=== PATIENT | female | born 1955 | race Caucasian/White ===

== ENCOUNTER 2018-01-03 01:30 | Emergency (ER) | payer OTHER ==
[~2018-01-03] VITALS: Ht 157.5 cm; Wt 90.7 kg
[~2018-01-03 01:30] MED LIST: LISI20; PANT20 PO; Percocet 5-3251 EACH PO; TIZANIDINE HCL4 MG; TRAM50
[2018-01-03] MEDS ORDERED: BENADRYL25 MG PO (03:30)
[2018-01-03] MEDS ORDERED: Prednisone50 MG PO (03:30)
== END 2018-01-03 03:47 | disposition home or self-care (01) ==
LOC: ER 01:30
DX: L50.0 Allergic urticaria (principal); Z88.0 Allergy status to penicillin; Z79.899 Other long term (current) drug therapy; Z79.891 Long term (current) use of opiate analgesic; Z87.891 Personal history of nicotine dependence
CPT/HCPCS: 99282; J1100; Q0163

== ENCOUNTER 2020-11-02 15:55 | Emergency (ER) | payer OTHER ==
[~2020-11-02] VITALS: Ht 157.5 cm; Wt 92.1 kg
[~2020-11-02 15:55] MED LIST changes: +BENADRYL25 MG PO; +DOCUZEN 8.6-501 EACH PO; +HYDR1TAB94 PO; -LISI20; +MOTRIN IB200 MG; +Norco 5-325 Ta1 EACH PO; +OXYC5 PO; +PANTOPRAZOLE SO40 M2 PO; +PROM25 PO; +Prednisone50 MG PO; +Prinivil10 MG PO; +TRAM50 PO
[2020-11-02 16:34] LABS: BASOPHILS ABSOLUTE AUTO 0.04 K/mm3 (0.00-0.23); BASOPHILS PERCENT AUTO 1 % (0-2); EOSINOPHILS ABSOLUTE AUTO 0.12 K/mm3 (0.00-0.68); EOSINOPHILS PERCENT AUTO 2 % (0-6); Hematocrit 39.1 % (33.0-51.0); Hemoglobin 12.1 g/dL (11.5-16.0); IMMATURE GRAN ABSOLUTE AUTO 0.01 K/mm3 (0.00-0.10); IMMATURE GRAN PERCENT AUTO 0 % (0-1); LYMPHOCYTES ABSOLUTE AUTO 2.25 K/mm3 (0.84-5.20); LYMPHOCYTES PERCENT AUTO 27 % (21-46); MONOCYTES ABSOLUTE AUTO 0.78 K/mm3 (0.16-1.47); MONOCYTES PERCENT AUTO 10 % (4-13); Mean Corpuscular HGB 25.3 pg (26.0-34.0); Mean Corpuscular HGB Conc 30.9 g/dL (31.5-36.5); Mean Corpuscular Volume 82 fL (80-100); Mean Platelet Volume 9.5 fL (9.1-12.4); NEUTROPHILS ABSOLUTE AUTO 5.01 K/mm3 (1.96-9.15); NEUTROPHILS PERCENT AUTO 61 % (41-73); Platelet Count 619 K/mm3 (150-400); RDW Coefficient Variation 12.8 % (11.7-14.2); RDW Standard Deviation 37.7 fL (35.1-46.3); Red Blood Cell Count 4.79 M/mm3 (3.80-5.20); White Blood Cell Count 8.21 K/mm3 (4.00-11.30)
[2020-11-02 16:52] LABS: Alanine Aminotransfer (ALT/SGP 36 U/L (12-78); Albumin/Globulin Ratio 0.8 (0.8-1.8); Alk Phos 76 U/L (50-136); Anion Gap 4 mmol/L (6-16); Aspartate Aminotrans (AST/SGOT 33 U/L (12-37); Bilirubin, Total 0.3 mg/dL (0.1-1.0); Blood Urea Nitrogen 18 mg/dL (8-24); Bun/Creatinine Ratio 19.7 (12.0-20.0); CO2, Blood 28 mmol/L (21-32); Calcium, Blood 9.1 mg/dL (8.5-10.1); Chloride, Blood 106 mmol/L (98-108); Creatinine, Blood 0.92 mg/dL (0.40-1.00); Glomerular Filtration Rate >60 (60-); Glucose, Blood 110 mg/dL (70-99); Potassium, Blood 4.3 mmol/L (3.5-5.5); Sodium, Blood 138 mmol/L (136-145)
[2020-11-02] MEDS ORDERED: Percocet 5-3251 EACH PO (18:45)
== END 2020-11-02 19:37 | disposition home or self-care (01) ==
LOC: ER 15:55
PROVIDERS: Physician Assistant
DX: R10.9 Unspecified abdominal pain (principal); R14.0 Abdominal distension (gaseous); C80.1 Malignant (primary) neoplasm, unspecified; Z79.899 Other long term (current) drug therapy; Z88.0 Allergy status to penicillin; Z87.891 Personal history of nicotine dependence
CPT/HCPCS: 36415; 80053; 83690; 85025; 96374; 99284-25; A9270; J1170

== ENCOUNTER 2020-11-05 09:36 | Emergency (ER) | payer OTHER ==
[~2020-11-05] VITALS: Ht 157.5 cm; Wt 92.1 kg
== END 2020-11-05 11:50 | disposition home or self-care (01) ==
LOC: ER 09:36
DX: R18.8 Other ascites (principal); R10.9 Unspecified abdominal pain; Z88.0 Allergy status to penicillin; Z87.891 Personal history of nicotine dependence
CPT/HCPCS: 49083; 99284-25

== ENCOUNTER → 2020-12-13 | Outpatient (CLI) | payer OTHER ==
[2020-12-13 14:21] LABS: BASOPHILS ABSOLUTE AUTO 0.03 K/mm3 (0.00-0.23); BASOPHILS PERCENT AUTO 1 % (0-2); EOSINOPHILS ABSOLUTE AUTO 0.05 K/mm3 (0.00-0.68); EOSINOPHILS PERCENT AUTO 1 % (0-6); Hematocrit 34.3 % (33.0-51.0); IMMATURE GRAN ABSOLUTE AUTO 0.02 K/mm3 (0.00-0.10); IMMATURE GRAN PERCENT AUTO 0 % (0-1); LYMPHOCYTES PERCENT AUTO 38 % (21-46); MONOCYTES ABSOLUTE AUTO 0.29 K/mm3 (0.16-1.47); MONOCYTES PERCENT AUTO 6 % (4-13); Mean Corpuscular HGB 26.2 pg (26.0-34.0); Mean Corpuscular HGB Conc 32.1 g/dL (31.5-36.5); Mean Corpuscular Volume 82 fL (80-100); Mean Platelet Volume 9.9 fL (9.1-12.4); NEUTROPHILS ABSOLUTE AUTO 2.76 K/mm3 (1.96-9.15); NEUTROPHILS PERCENT AUTO 55 % (41-73); Platelet Count 288 K/mm3 (150-400); RDW Coefficient Variation 15.7 % (11.7-14.2); RDW Standard Deviation 46.5 fL (35.1-46.3); White Blood Cell Count 5.05 K/mm3 (4.00-11.30)
[2020-12-13 14:28] LABS: Alanine Aminotransfer (ALT/SGP 24 U/L (12-78); Albumin, Blood 3.6 g/dL (3.4-5.0); Alk Phos 57 U/L (50-136); Anion Gap 4 mmol/L (6-16); Aspartate Aminotrans (AST/SGOT 11 U/L (12-37); Bilirubin, Total 0.3 mg/dL (0.1-1.0); Blood Urea Nitrogen 31 mg/dL (8-24); Bun/Creatinine Ratio 36.4 (12.0-20.0); CO2, Blood 26 mmol/L (21-32); Calcium, Blood 9.3 mg/dL (8.5-10.1); Chloride, Blood 106 mmol/L (98-108); Creatinine, Blood 0.85 mg/dL (0.40-1.00); Globulin, Blood 3.7 g/dL (2.2-4.0); Glomerular Filtration Rate >60 (60-); Glucose, Blood 137 mg/dL (70-99); Potassium, Blood 4.4 mmol/L (3.5-5.5); Sodium, Blood 136 mmol/L (136-145); Total Protein, Blood 7.3 g/dL (6.4-8.2)
== END | disposition home or self-care (01) ==
LOC: LAB 14:00 → LAB SHORT 14:00
PROVIDERS: Internal Medicine Hematology & Oncology
DX: C48.2 Malignant neoplasm of peritoneum, unspecified (principal)
CPT/HCPCS: 80053; 85025

== ENCOUNTER → 2021-05-22 | Outpatient (CLI) | payer OTHER ==
[2021-05-22 10:59] LABS: BASOPHILS ABSOLUTE AUTO 0.02 K/mm3 (0.00-0.23); BASOPHILS PERCENT AUTO 0 % (0-2); EOSINOPHILS ABSOLUTE AUTO 0.09 K/mm3 (0.00-0.68); EOSINOPHILS PERCENT AUTO 2 % (0-6); Hematocrit 36.2 % (33.0-51.0); Hemoglobin 11.2 g/dL (11.5-16.0); IMMATURE GRAN ABSOLUTE AUTO 0.01 K/mm3 (0.00-0.10); IMMATURE GRAN PERCENT AUTO 0 % (0-1); LYMPHOCYTES ABSOLUTE AUTO 1.86 K/mm3 (0.84-5.20); LYMPHOCYTES PERCENT AUTO 33 % (21-46); MONOCYTES ABSOLUTE AUTO 0.57 K/mm3 (0.16-1.47); MONOCYTES PERCENT AUTO 10 % (4-13); Mean Corpuscular HGB 27.1 pg (26.0-34.0); Mean Corpuscular HGB Conc 30.9 g/dL (31.5-36.5); Mean Corpuscular Volume 88 fL (80-100); Mean Platelet Volume 9.5 fL (9.1-12.4); NEUTROPHILS ABSOLUTE AUTO 3.17 K/mm3 (1.96-9.15); NEUTROPHILS PERCENT AUTO 55 % (41-73); Platelet Count 248 K/mm3 (150-400); RDW Coefficient Variation 15.1 % (11.7-14.2); RDW Standard Deviation 48.1 fL (35.1-46.3); Red Blood Cell Count 4.13 M/mm3 (3.80-5.20); White Blood Cell Count 5.72 K/mm3 (4.00-11.30)
[2021-05-22 11:20] LABS: Albumin, Blood 3.4 g/dL (3.4-5.0); Albumin/Globulin Ratio 0.9 (0.8-1.8); Bilirubin, Total 0.3 mg/dL (0.1-1.0); Bun/Creatinine Ratio 16.7 (12.0-20.0); Calcium, Blood 9.4 mg/dL (8.5-10.1); Creatinine, Blood 0.96 mg/dL (0.40-1.00); Globulin, Blood 3.7 g/dL (2.2-4.0); Total Protein, Blood 7.1 g/dL (6.4-8.2)
== END ==
LOC: LAB SHORT 10:33
PROVIDERS: Internal Medicine Hematology & Oncology
DX: C48.2 Malignant neoplasm of peritoneum, unspecified (principal)
CPT/HCPCS: 36415; 80053; 85025; 86304

== ENCOUNTER 2021-06-10 09:15 | Day surgery (SDC) | payer OTHER ==
[~2021-06-10] VITALS: Ht 157.5 cm; Wt 84.1 kg
[~2021-06-10 09:15] MED LIST changes: +FLUC150A; +HYDR1TAB94; +ONDA8; +OXYCODONE; +PROM25
[2021-06-10] MEDS ORDERED: OXYCONTIN20 M1 PO (10:41)
[2021-06-10] MEDS ORDERED: PANTOPRAZOLE SO40 M2 PO (10:41)
[2021-06-10] MEDS ORDERED: FLUTICASONE PRO16 GM (10:42)
[2021-06-10] MEDS ORDERED: OXYC10TA19 PO (10:42)
--- NOTE | 2021-06-10 11:16 | NUR ---
PT AMBULATES TO [facility]. History, Chart, Medications and Allergies reviewed before start of procedure. Lungs clear T/O to Auscultation. Patient reports completing Chlorhexadine shower X2 prior to admission to hospital. Patient States Post-Procedure ride home has been arranged.
--- NOTE | 2021-06-10 12:30 | NUR ---
PT REPORTS INCREASED NAUSEA. MEDICATED c ZOFRAN 4 MG IVP.
--- NOTE | 2021-06-10 15:17 | NUR ---
PT DENIES PAIN p PROCEDURE. DRESSING TO R CHEST WALL, CDI, STERI STRIP TO R NECK CDI. PT GIVEN PO FLUIDS AND FOOD PER REQUEST. DENIES NAUSEA p FOOD. IV DC'D, CATH INTACT AND PRESSURE DRESSING APPLIED. GIVEN DC INSTRUCTIONS. NO QUESITONS. AMB TO RESTROOM c STEADY GAIT. DRESSES SELF s DIFFICULTY. OTD IN VIA WC c SAFE RIDE HOME.
--- NOTE | 2021-06-11 10:44 | NUR ---
06/11/21 1044 Devorah Alvarez VERIFICATIONS: EDIT CHART.
== END 2021-06-10 22:55 | disposition home or self-care (01) ==
LOC: ORSCMMR 09:15 → ORD 10:45 → ORSCMMR 10:45
PROVIDERS: Surgery
PROC: 05HM33Z Insertion of Infusion Device into Right Internal Jugular Vein, Percutaneous Approach (ICD-10-PCS; principal; 2021-06-10 10:45)
PROC: B543ZZA Ultrasonography of Right Jugular Veins, Guidance (ICD-10-PCS; principal; 2021-06-10 10:45)
DX: C48.2 Malignant neoplasm of peritoneum, unspecified (principal); I10 Essential (primary) hypertension; K21.9 Gastro-esophageal reflux disease without esophagitis; Z79.899 Other long term (current) drug therapy; E66.9 Obesity, unspecified; Z68.33 Body mass index [BMI] 33.0-33.9, adult
CPT/HCPCS: 77001; C1788; J1100; J1642; J1885; J2250; J2405; J2704; J3010; J7120

== ENCOUNTER 2021-06-13 01:27 | Day surgery (SDC) | payer OTHER ==
[~2021-06-13 01:27] MED LIST changes: +FLUTICASONE PRO16 GM; +OXYC10TA19 PO; +OXYCONTIN20 M1 PO
[2021-06-13 11:36] LABS: BASOPHILS ABSOLUTE AUTO 0.02 K/mm3 (0.00-0.23); BASOPHILS PERCENT AUTO 0 % (0-2); EOSINOPHILS ABSOLUTE AUTO 0.07 K/mm3 (0.00-0.68); EOSINOPHILS PERCENT AUTO 1 % (0-6); Hematocrit 41.4 % (33.0-51.0); Hemoglobin 12.9 g/dL (11.5-16.0); IMMATURE GRAN ABSOLUTE AUTO 0.02 K/mm3 (0.00-0.10); IMMATURE GRAN PERCENT AUTO 0 % (0-1); LYMPHOCYTES ABSOLUTE AUTO 2.92 K/mm3 (0.84-5.20); LYMPHOCYTES PERCENT AUTO 38 % (21-46); MONOCYTES ABSOLUTE AUTO 0.61 K/mm3 (0.16-1.47); MONOCYTES PERCENT AUTO 8 % (4-13); Mean Corpuscular HGB 26.4 pg (26.0-34.0); Mean Corpuscular HGB Conc 31.2 g/dL (31.5-36.5); Mean Corpuscular Volume 85 fL (80-100); Mean Platelet Volume 9.9 fL (9.1-12.4); NEUTROPHILS ABSOLUTE AUTO 4.15 K/mm3 (1.96-9.15); NEUTROPHILS PERCENT AUTO 53 % (41-73); Platelet Count 299 K/mm3 (150-400); RDW Coefficient Variation 14.8 % (11.7-14.2); RDW Standard Deviation 45.9 fL (35.1-46.3); Red Blood Cell Count 4.88 M/mm3 (3.80-5.20); White Blood Cell Count 7.79 K/mm3 (4.00-11.30)
[2021-06-13] MEDS ORDERED: Norco 5-325 Ta1 EACH (11:42)
[2021-06-13] MEDS ORDERED: PROM25 PO (11:43)
[2021-06-13] MEDS ORDERED: ONDA8 PO (11:47)
[2021-06-13 12:01] LABS: Alanine Aminotransfer (ALT/SGP 21 U/L (12-78); Albumin, Blood 3.6 g/dL (3.4-5.0); Albumin/Globulin Ratio 1.1 (0.8-1.8); Alk Phos 52 U/L (50-136); Anion Gap 6 mmol/L (6-16); Aspartate Aminotrans (AST/SGOT 17 U/L (12-37); Bilirubin, Total 0.3 mg/dL (0.1-1.0); Blood Urea Nitrogen 23 mg/dL (8-24); Bun/Creatinine Ratio 24.8 (12.0-20.0); CO2, Blood 29 mmol/L (21-32); Calcium, Blood 9.5 mg/dL (8.5-10.1); Chloride, Blood 106 mmol/L (98-108); Creatinine, Blood 0.93 mg/dL (0.40-1.00); Globulin, Blood 3.2 g/dL (2.2-4.0); Glomerular Filtration Rate >60 (60-); Glucose, Blood 96 mg/dL (70-99); Potassium, Blood 4.5 mmol/L (3.5-5.5); Sodium, Blood 141 mmol/L (136-145); Total Protein, Blood 6.8 g/dL (6.4-8.2)
== END 2021-06-13 11:10 | disposition home or self-care (01) ==
LOC: ATC 01:27
PROVIDERS: Internal Medicine Hematology & Oncology
DX: C48.2 Malignant neoplasm of peritoneum, unspecified (principal); I10 Essential (primary) hypertension; Z88.0 Allergy status to penicillin; Z87.891 Personal history of nicotine dependence; Z92.21 Personal history of antineoplastic chemotherapy
CPT/HCPCS: 36591; 80053; 85025; 86304; J1642

== ENCOUNTER 2021-07-03 05:00 | Day surgery (SDC) | payer OTHER ==
[~2021-07-03 05:00] MED LIST changes: +Norco 5-325 Ta1 EACH; +ONDA8 PO
[2021-07-03 10:10] LABS: BASOPHILS ABSOLUTE AUTO 0.02 K/mm3 (0.00-0.23); BASOPHILS PERCENT AUTO 0 % (0-2); EOSINOPHILS ABSOLUTE AUTO 0.09 K/mm3 (0.00-0.68); EOSINOPHILS PERCENT AUTO 1 % (0-6); Hemoglobin 11.7 g/dL (11.5-16.0); IMMATURE GRAN ABSOLUTE AUTO 0.01 K/mm3 (0.00-0.10); IMMATURE GRAN PERCENT AUTO 0 % (0-1); LYMPHOCYTES ABSOLUTE AUTO 2.52 K/mm3 (0.84-5.20); LYMPHOCYTES PERCENT AUTO 36 % (21-46); MONOCYTES ABSOLUTE AUTO 0.57 K/mm3 (0.16-1.47); MONOCYTES PERCENT AUTO 8 % (4-13); Mean Corpuscular HGB 25.9 pg (26.0-34.0); Mean Corpuscular HGB Conc 31.6 g/dL (31.5-36.5); Mean Corpuscular Volume 82 fL (80-100); Mean Platelet Volume 9.8 fL (9.1-12.4); NEUTROPHILS ABSOLUTE AUTO 3.86 K/mm3 (1.96-9.15); NEUTROPHILS PERCENT AUTO 55 % (41-73); Platelet Count 312 K/mm3 (150-400); RDW Coefficient Variation 14.7 % (11.7-14.2); RDW Standard Deviation 44.5 fL (35.1-46.3); Red Blood Cell Count 4.51 M/mm3 (3.80-5.20); White Blood Cell Count 7.07 K/mm3 (4.00-11.30)
[2021-07-03 10:18] LABS: Alanine Aminotransfer (ALT/SGP 24 U/L (12-78); Albumin, Blood 3.5 g/dL (3.4-5.0); Albumin/Globulin Ratio 1.2 (0.8-1.8); Alk Phos 56 U/L (50-136); Anion Gap 7 mmol/L (6-16); Aspartate Aminotrans (AST/SGOT 17 U/L (12-37); Bilirubin, Total 0.5 mg/dL (0.1-1.0); Blood Urea Nitrogen 19 mg/dL (8-24); Bun/Creatinine Ratio 22.4 (12.0-20.0); CO2, Blood 28 mmol/L (21-32); Calcium, Blood 9.5 mg/dL (8.5-10.1); Chloride, Blood 105 mmol/L (98-108); Creatinine, Blood 0.85 mg/dL (0.40-1.00); Glomerular Filtration Rate >60 (60-); Glucose, Blood 103 mg/dL (70-99); Potassium, Blood 4.1 mmol/L (3.5-5.5); Sodium, Blood 140 mmol/L (136-145); Total Protein, Blood 6.5 g/dL (6.4-8.2)
== END 2021-07-03 09:07 | disposition home or self-care (01) ==
LOC: ATC 05:00
PROVIDERS: Internal Medicine Hematology & Oncology
DX: C48.2 Malignant neoplasm of peritoneum, unspecified (principal); I10 Essential (primary) hypertension; Z87.891 Personal history of nicotine dependence
CPT/HCPCS: 36591; 80053; 85025; 86304; J1642

== ENCOUNTER 2021-07-24 01:12 | Day surgery (SDC) | payer OTHER ==
[2021-07-24 10:41] LABS: BASOPHILS ABSOLUTE AUTO 0.03 K/mm3 (0.00-0.23); BASOPHILS PERCENT AUTO 0 % (0-2); EOSINOPHILS ABSOLUTE AUTO 0.19 K/mm3 (0.00-0.68); EOSINOPHILS PERCENT AUTO 2 % (0-6); Hematocrit 37.5 % (33.0-51.0); Hemoglobin 11.7 g/dL (11.5-16.0); IMMATURE GRAN ABSOLUTE AUTO 0.03 K/mm3 (0.00-0.10); IMMATURE GRAN PERCENT AUTO 0 % (0-1); LYMPHOCYTES ABSOLUTE AUTO 2.59 K/mm3 (0.84-5.20); LYMPHOCYTES PERCENT AUTO 32 % (21-46); MONOCYTES ABSOLUTE AUTO 0.72 K/mm3 (0.16-1.47); MONOCYTES PERCENT AUTO 9 % (4-13); Mean Corpuscular HGB 25.4 pg (26.0-34.0); Mean Corpuscular HGB Conc 31.2 g/dL (31.5-36.5); Mean Corpuscular Volume 82 fL (80-100); Mean Platelet Volume 9.7 fL (9.1-12.4); NEUTROPHILS ABSOLUTE AUTO 4.55 K/mm3 (1.96-9.15); NEUTROPHILS PERCENT AUTO 56 % (41-73); Platelet Count 312 K/mm3 (150-400); RDW Standard Deviation 44.4 fL (35.1-46.3); White Blood Cell Count 8.11 K/mm3 (4.00-11.30)
[2021-07-24 10:52] LABS: Albumin, Blood 3.4 g/dL (3.4-5.0); Albumin/Globulin Ratio 1.1 (0.8-1.8); Bilirubin, Total 0.5 mg/dL (0.1-1.0); Bun/Creatinine Ratio 22.1 (12.0-20.0); Calcium, Blood 9.1 mg/dL (8.5-10.1); Creatinine, Blood 0.95 mg/dL (0.40-1.00); Globulin, Blood 3.1 g/dL (2.2-4.0); Potassium, Blood 4.7 mmol/L (3.5-5.5); Total Protein, Blood 6.5 g/dL (6.4-8.2)
== END 2021-07-24 10:08 | disposition home or self-care (01) ==
LOC: ATC 01:12
PROVIDERS: Internal Medicine Hematology & Oncology
DX: C48.2 Malignant neoplasm of peritoneum, unspecified (principal); C78.6 Secondary malignant neoplasm of retroperitoneum and peritoneum; I10 Essential (primary) hypertension; Z87.891 Personal history of nicotine dependence
CPT/HCPCS: 80053; 85025; 86304; J1642

== ENCOUNTER 2021-08-14 00:16 | Day surgery (SDC) | payer OTHER ==
[2021-08-14 14:06] LABS: BASOPHILS ABSOLUTE AUTO 0.02 K/mm3 (0.00-0.23); BASOPHILS PERCENT AUTO 0 % (0-2); EOSINOPHILS ABSOLUTE AUTO 0.12 K/mm3 (0.00-0.68); EOSINOPHILS PERCENT AUTO 2 % (0-6); Hematocrit 33.7 % (33.0-51.0); Hemoglobin 10.3 g/dL (11.5-16.0); IMMATURE GRAN ABSOLUTE AUTO 0.02 K/mm3 (0.00-0.10); IMMATURE GRAN PERCENT AUTO 0 % (0-1); LYMPHOCYTES ABSOLUTE AUTO 2.06 K/mm3 (0.84-5.20); LYMPHOCYTES PERCENT AUTO 27 % (21-46); MONOCYTES ABSOLUTE AUTO 0.83 K/mm3 (0.16-1.47); MONOCYTES PERCENT AUTO 11 % (4-13); Mean Corpuscular HGB 24.9 pg (26.0-34.0); Mean Corpuscular HGB Conc 30.6 g/dL (31.5-36.5); Mean Corpuscular Volume 81 fL (80-100); Mean Platelet Volume 9.5 fL (9.1-12.4); NEUTROPHILS ABSOLUTE AUTO 4.66 K/mm3 (1.96-9.15); NEUTROPHILS PERCENT AUTO 60 % (41-73); Platelet Count 503 K/mm3 (150-400); RDW Coefficient Variation 15.5 % (11.7-14.2); RDW Standard Deviation 46.5 fL (35.1-46.3); Red Blood Cell Count 4.14 M/mm3 (3.80-5.20); White Blood Cell Count 7.71 K/mm3 (4.00-11.30)
[2021-08-14 14:22] LABS: Alanine Aminotransfer (ALT/SGP 19 U/L (12-78); Albumin, Blood 2.7 g/dL (3.4-5.0); Albumin/Globulin Ratio 0.7 (0.8-1.8); Alk Phos 67 U/L (50-136); Anion Gap 7 mmol/L (6-16); Aspartate Aminotrans (AST/SGOT 15 U/L (12-37); Bilirubin, Total 0.6 mg/dL (0.1-1.0); Blood Urea Nitrogen 17 mg/dL (8-24); Bun/Creatinine Ratio 18.5 (12.0-20.0); CO2, Blood 26 mmol/L (21-32); Chloride, Blood 106 mmol/L (98-108); Creatinine, Blood 0.92 mg/dL (0.40-1.00); Globulin, Blood 3.7 g/dL (2.2-4.0); Glomerular Filtration Rate >60 (60-); Glucose, Blood 103 mg/dL (70-99); Potassium, Blood 4.6 mmol/L (3.5-5.5); Sodium, Blood 139 mmol/L (136-145); Total Protein, Blood 6.4 g/dL (6.4-8.2)
== END 2021-08-14 13:35 | disposition home or self-care (01) ==
LOC: ATC 00:16
PROVIDERS: Internal Medicine Hematology & Oncology
DX: C48.2 Malignant neoplasm of peritoneum, unspecified (principal); C78.6 Secondary malignant neoplasm of retroperitoneum and peritoneum; I10 Essential (primary) hypertension; Z87.891 Personal history of nicotine dependence
CPT/HCPCS: 80053; 85025; 86304; J1642

== ENCOUNTER 2021-09-05 11:17 | Day surgery (SDC) | payer OTHER | END 2021-09-05 14:49 | disposition home or self-care (01) | LOC: ATC 11:17 | DX: D69.59 Other secondary thrombocytopenia (principal); C48.2 Malignant neoplasm of peritoneum, unspecified; C78.6 Secondary malignant neoplasm of retroperitoneum and peritoneum; I10 Essential (primary) hypertension; Z87.891 Personal history of nicotine dependence | CPT/HCPCS: 36430; 86900; 86901; J1642; J7050; P9035 ==

== ENCOUNTER 2021-09-11 01:17 | Day surgery (SDC) | payer OTHER ==
[2021-09-11 16:15] LABS: BASOPHILS ABSOLUTE AUTO 0.01 K/mm3 (0.00-0.23); BASOPHILS PERCENT AUTO 0 % (0-2); EOSINOPHILS ABSOLUTE AUTO 0.01 K/mm3 (0.00-0.68); EOSINOPHILS PERCENT AUTO 0 % (0-6); Hematocrit 24.2 % (33.0-51.0); Hemoglobin 7.2 g/dL (11.5-16.0); IMMATURE GRAN ABSOLUTE AUTO 0.06 K/mm3 (0.00-0.10); IMMATURE GRAN PERCENT AUTO 1 % (0-1); LYMPHOCYTES ABSOLUTE AUTO 2.34 K/mm3 (0.84-5.20); LYMPHOCYTES PERCENT AUTO 46 % (21-46); MONOCYTES ABSOLUTE AUTO 0.65 K/mm3 (0.16-1.47); MONOCYTES PERCENT AUTO 13 % (4-13); Mean Corpuscular HGB 24.6 pg (26.0-34.0); Mean Corpuscular HGB Conc 29.8 g/dL (31.5-36.5); Mean Corpuscular Volume 83 fL (80-100); Mean Platelet Volume 10.5 fL (9.1-12.4); NEUTROPHILS ABSOLUTE AUTO 2.05 K/mm3 (1.96-9.15); NEUTROPHILS PERCENT AUTO 40 % (41-73); NRBC ABSOLUTE 0.02 K/mm3 (0.00-0.02); NRBC Auto 0.4 /100 WBC (0.0-0.2); Platelet Count 293 K/mm3 (150-400); RDW Coefficient Variation 16.9 % (11.7-14.2); RDW Standard Deviation 45.6 fL (35.1-46.3); Red Blood Cell Count 2.93 M/mm3 (3.80-5.20); White Blood Cell Count 5.12 K/mm3 (4.00-11.30)
[2022-03-22] MEDS ORDERED: PROM25 PO (20:04)
[2022-03-22] MEDS ORDERED: LOPE2C PO (20:04)
[2022-03-22] MEDS ORDERED: ONDA4ODT MM (20:04)
== END 2021-09-11 15:33 | disposition home or self-care (01) ==
LOC: ATC 01:17
PROVIDERS: Internal Medicine Hematology & Oncology
DX: C48.2 Malignant neoplasm of peritoneum, unspecified (principal); C78.6 Secondary malignant neoplasm of retroperitoneum and peritoneum; I10 Essential (primary) hypertension; Z87.891 Personal history of nicotine dependence; Z88.0 Allergy status to penicillin; Z92.21 Personal history of antineoplastic chemotherapy
CPT/HCPCS: 36593; 85025; J1642; J2997

== ENCOUNTER 2021-09-25 00:27 | Day surgery (SDC) | payer OTHER ==
--- NOTE | 2021-09-25 14:21 | NUR ---
VERBAL BLOOD PRESSURE EDUCATION WITH PATIENT. PATIENT VERBALIZED UNDERSTANDING
[2021-09-25 15:19] LABS: BASOPHILS ABSOLUTE AUTO 0.05 K/mm3 (0.00-0.23); BASOPHILS PERCENT AUTO 1 % (0-2); EOSINOPHILS ABSOLUTE AUTO 0.01 K/mm3 (0.00-0.68); EOSINOPHILS PERCENT AUTO 0 % (0-6); Hematocrit 27.7 % (33.0-51.0); Hemoglobin 8.4 g/dL (11.5-16.0); IMMATURE GRAN ABSOLUTE AUTO 0.11 K/mm3 (0.00-0.10); IMMATURE GRAN PERCENT AUTO 1 % (0-1); LYMPHOCYTES ABSOLUTE AUTO 2.77 K/mm3 (0.84-5.20); LYMPHOCYTES PERCENT AUTO 34 % (21-46); MONOCYTES ABSOLUTE AUTO 0.52 K/mm3 (0.16-1.47); MONOCYTES PERCENT AUTO 6 % (4-13); Mean Corpuscular HGB 25.8 pg (26.0-34.0); Mean Corpuscular HGB Conc 30.3 g/dL (31.5-36.5); Mean Corpuscular Volume 85 fL (80-100); Mean Platelet Volume 10.2 fL (9.1-12.4); NEUTROPHILS ABSOLUTE AUTO 4.61 K/mm3 (1.96-9.15); NEUTROPHILS PERCENT AUTO 57 % (41-73); Platelet Count 586 K/mm3 (150-400); RDW Coefficient Variation 19.3 % (11.7-14.2); RDW Standard Deviation 55.8 fL (35.1-46.3); Red Blood Cell Count 3.26 M/mm3 (3.80-5.20); White Blood Cell Count 8.07 K/mm3 (4.00-11.30)
[2021-09-25 15:37] LABS: Alanine Aminotransfer (ALT/SGP 13 U/L (12-78); Albumin, Blood 3.4 g/dL (3.4-5.0); Albumin/Globulin Ratio 0.8 (0.8-1.8); Alk Phos 61 U/L (50-136); Anion Gap 7 mmol/L (6-16); Aspartate Aminotrans (AST/SGOT 13 U/L (12-37); Bilirubin, Total 0.4 mg/dL (0.1-1.0); Blood Urea Nitrogen 17 mg/dL (8-24); Bun/Creatinine Ratio 18.3 (12.0-20.0); CO2, Blood 27 mmol/L (21-32); Calcium, Blood 9.4 mg/dL (8.5-10.1); Chloride, Blood 103 mmol/L (98-108); Creatinine, Blood 0.93 mg/dL (0.40-1.00); Globulin, Blood 4.3 g/dL (2.2-4.0); Glomerular Filtration Rate >60 (60-); Glucose, Blood 146 mg/dL (70-99); Potassium, Blood 4.1 mmol/L (3.5-5.5); Sodium, Blood 137 mmol/L (136-145); Total Protein, Blood 7.7 g/dL (6.4-8.2)
== END 2021-09-25 14:15 | disposition home or self-care (01) ==
LOC: ATC 00:27
PROVIDERS: Internal Medicine Hematology & Oncology
DX: C48.2 Malignant neoplasm of peritoneum, unspecified (principal); I10 Essential (primary) hypertension; Z87.891 Personal history of nicotine dependence; Z88.0 Allergy status to penicillin
CPT/HCPCS: 80053; 85025; J1642

== ENCOUNTER 2021-10-02 01:15 | Day surgery (SDC) | payer OTHER ==
[2021-10-02 15:33] LABS: Hematocrit 28.6 % (33.0-51.0); Hemoglobin 8.7 g/dL (11.5-16.0); Mean Corpuscular HGB 26.4 pg (26.0-34.0); Mean Corpuscular HGB Conc 30.4 g/dL (31.5-36.5); Mean Corpuscular Volume 87 fL (80-100); Mean Platelet Volume 10.1 fL (9.1-12.4); NRBC ABSOLUTE 0.09 K/mm3 (0.00-0.02); NRBC Auto 0.2 /100 WBC (0.0-0.2); Platelet Count 336 K/mm3 (150-400); RDW Coefficient Variation 21.7 % (11.7-14.2); RDW Standard Deviation 64.1 fL (35.1-46.3); White Blood Cell Count 46.79 K/mm3 (4.00-11.30)
[2021-10-02 15:51] LABS: Albumin, Blood 3.3 g/dL (3.4-5.0); Albumin/Globulin Ratio 0.8 (0.8-1.8); Bilirubin, Total 0.2 mg/dL (0.1-1.0); Bun/Creatinine Ratio 16.8 (12.0-20.0); Creatinine, Blood 1.01 mg/dL (0.40-1.00); Globulin, Blood 4.2 g/dL (2.2-4.0); Potassium, Blood 4.6 mmol/L (3.5-5.5); Total Protein, Blood 7.5 g/dL (6.4-8.2)
[2021-10-02 17:06] LABS: BAND PERCENT MAN 20 % (0-8); BASOPHILS PERCENT MAN 0 % (0-2); EOSINOPHILS PERCENT MAN 0 % (0-6); LYMPHOCYTES ABSOLUTE MAN 9.35 K/mm3 (0.84-5.20); LYMPHOCYTES PERCENT MAN 20 % (21-46); METAMYELOCYTE PERCENT MAN 6 % (0-0); MONOCYTES ABSOLUTE MAN 1.87 K/mm3 (0.16-1.47); MONOCYTES PERCENT MAN 4 % (4-13); MYELOCYTE ABSOLUTE MAN 2.33 K/mm3 (0.00-0.00); MYELOCYTE PERCENT MAN 5 % (0-0); NEUTROPHILS ABSOLUTE MAN 30.41 K/mm3 (1.96-9.15); SEG NEUTROPHILS PERCENT MAN 45 % (41-73); TOTAL CELLS COUNTED 100
== END 2021-10-02 14:45 | disposition home or self-care (01) ==
LOC: ATC 01:15
PROVIDERS: Internal Medicine Hematology & Oncology
DX: C48.2 Malignant neoplasm of peritoneum, unspecified (principal)
CPT/HCPCS: 36415; 80053; 85025; 86304; 96523; J1642

== ENCOUNTER 2021-10-07 09:57 | Day surgery (SDC) | payer OTHER ==
[2022-03-22] MEDS ORDERED: LOPE2C PO (20:04)
[2022-03-22] MEDS ORDERED: PROM25 PO (20:04)
[2022-03-22] MEDS ORDERED: ONDA4ODT MM (20:04)
== END 2021-10-07 23:06 | disposition home or self-care (01) ==
LOC: RAD 09:57 → ORSCMMR 09:58 → RAD 10:30
DX: C48.2 Malignant neoplasm of peritoneum, unspecified (principal)
CPT/HCPCS: 36598

== ENCOUNTER 2021-10-23 00:51 | Day surgery (SDC) | payer OTHER ==
[2021-10-23 15:39] LABS: BASOPHILS ABSOLUTE AUTO 0.02 K/mm3 (0.00-0.23); BASOPHILS PERCENT AUTO 0 % (0-2); EOSINOPHILS PERCENT AUTO 2 % (0-6); Hematocrit 25.5 % (33.0-51.0); Hemoglobin 7.7 g/dL (11.5-16.0); IMMATURE GRAN ABSOLUTE AUTO 0.01 K/mm3 (0.00-0.10); IMMATURE GRAN PERCENT AUTO 0 % (0-1); LYMPHOCYTES ABSOLUTE AUTO 1.57 K/mm3 (0.84-5.20); LYMPHOCYTES PERCENT AUTO 28 % (21-46); MONOCYTES ABSOLUTE AUTO 0.58 K/mm3 (0.16-1.47); MONOCYTES PERCENT AUTO 10 % (4-13); Mean Corpuscular HGB 27.1 pg (26.0-34.0); Mean Corpuscular HGB Conc 30.2 g/dL (31.5-36.5); Mean Corpuscular Volume 90 fL (80-100); Mean Platelet Volume 9.6 fL (9.1-12.4); NEUTROPHILS ABSOLUTE AUTO 3.34 K/mm3 (1.96-9.15); NEUTROPHILS PERCENT AUTO 59 % (41-73); Platelet Count 273 K/mm3 (150-400); RDW Coefficient Variation 22.6 % (11.7-14.2); RDW Standard Deviation 74.3 fL (35.1-46.3); Red Blood Cell Count 2.84 M/mm3 (3.80-5.20); White Blood Cell Count 5.62 K/mm3 (4.00-11.30)
[2021-10-23 15:50] LABS: Albumin, Blood 3.2 g/dL (3.4-5.0); Albumin/Globulin Ratio 0.9 (0.8-1.8); Bilirubin, Total 0.3 mg/dL (0.1-1.0); Bun/Creatinine Ratio 25.6 (12.0-20.0); Calcium, Blood 8.4 mg/dL (8.5-10.1); Creatinine, Blood 0.98 mg/dL (0.40-1.00); Globulin, Blood 3.5 g/dL (2.2-4.0); Total Protein, Blood 6.7 g/dL (6.4-8.2)
== END 2021-10-23 14:26 | disposition home or self-care (01) ==
LOC: ATC 00:51
PROVIDERS: Internal Medicine Hematology & Oncology
DX: C48.2 Malignant neoplasm of peritoneum, unspecified (principal); I10 Essential (primary) hypertension; Z87.891 Personal history of nicotine dependence; Z88.0 Allergy status to penicillin
CPT/HCPCS: 80053; 85025; J1642

== ENCOUNTER 2021-12-05 01:29 | Day surgery (SDC) | payer OTHER ==
[2021-12-05 11:00] LABS: BASOPHILS ABSOLUTE AUTO 0.02 K/mm3 (0.00-0.23); BASOPHILS PERCENT AUTO 0 % (0-2); EOSINOPHILS ABSOLUTE AUTO 0.05 K/mm3 (0.00-0.68); EOSINOPHILS PERCENT AUTO 1 % (0-6); Hemoglobin 8.9 g/dL (11.5-16.0); IMMATURE GRAN ABSOLUTE AUTO 0.02 K/mm3 (0.00-0.10); IMMATURE GRAN PERCENT AUTO 0 % (0-1); LYMPHOCYTES ABSOLUTE AUTO 1.26 K/mm3 (0.84-5.20); LYMPHOCYTES PERCENT AUTO 23 % (21-46); MONOCYTES ABSOLUTE AUTO 0.46 K/mm3 (0.16-1.47); MONOCYTES PERCENT AUTO 9 % (4-13); Mean Corpuscular HGB 27.6 pg (26.0-34.0); Mean Corpuscular HGB Conc 30.7 g/dL (31.5-36.5); Mean Corpuscular Volume 90 fL (80-100); Mean Platelet Volume 8.7 fL (9.1-12.4); NEUTROPHILS ABSOLUTE AUTO 3.63 K/mm3 (1.96-9.15); NEUTROPHILS PERCENT AUTO 67 % (41-73); Platelet Count 276 K/mm3 (150-400); RDW Coefficient Variation 17.7 % (11.7-14.2); RDW Standard Deviation 58.3 fL (35.1-46.3); Red Blood Cell Count 3.23 M/mm3 (3.80-5.20); White Blood Cell Count 5.44 K/mm3 (4.00-11.30)
[2021-12-05 11:20] LABS: Albumin, Blood 3.4 g/dL (3.4-5.0); Bilirubin, Total 0.2 mg/dL (0.1-1.0); Bun/Creatinine Ratio 24.9 (12.0-20.0); Calcium, Blood 9.2 mg/dL (8.5-10.1); Creatinine, Blood 0.92 mg/dL (0.40-1.00); Globulin, Blood 3.5 g/dL (2.2-4.0); Potassium, Blood 4.3 mmol/L (3.5-5.5); Total Protein, Blood 6.9 g/dL (6.4-8.2)
== END 2021-12-05 10:54 | disposition home or self-care (01) ==
LOC: ATC 01:29
PROVIDERS: Internal Medicine Hematology & Oncology
DX: C48.2 Malignant neoplasm of peritoneum, unspecified (principal); C78.6 Secondary malignant neoplasm of retroperitoneum and peritoneum; I10 Essential (primary) hypertension; Z88.0 Allergy status to penicillin; Z87.891 Personal history of nicotine dependence
CPT/HCPCS: 36591; 80053; 85025; 86304; J1642

== ENCOUNTER 2022-01-02 08:29 | Day surgery (SDC) | payer OTHER ==
[2022-01-02 10:47] LABS: BASOPHILS ABSOLUTE AUTO 0.01 K/mm3 (0.00-0.23); BASOPHILS PERCENT AUTO 0 % (0-2); EOSINOPHILS ABSOLUTE AUTO 0.07 K/mm3 (0.00-0.68); EOSINOPHILS PERCENT AUTO 1 % (0-6); Hematocrit 28.5 % (33.0-51.0); Hemoglobin 8.8 g/dL (11.5-16.0); IMMATURE GRAN ABSOLUTE AUTO 0.01 K/mm3 (0.00-0.10); IMMATURE GRAN PERCENT AUTO 0 % (0-1); LYMPHOCYTES ABSOLUTE AUTO 2.01 K/mm3 (0.84-5.20); LYMPHOCYTES PERCENT AUTO 32 % (21-46); MONOCYTES ABSOLUTE AUTO 0.57 K/mm3 (0.16-1.47); MONOCYTES PERCENT AUTO 9 % (4-13); Mean Corpuscular HGB 27.5 pg (26.0-34.0); Mean Corpuscular HGB Conc 30.9 g/dL (31.5-36.5); Mean Corpuscular Volume 89 fL (80-100); Mean Platelet Volume 8.9 fL (9.1-12.4); NEUTROPHILS ABSOLUTE AUTO 3.53 K/mm3 (1.96-9.15); NEUTROPHILS PERCENT AUTO 57 % (41-73); Platelet Count 283 K/mm3 (150-400); RDW Coefficient Variation 16.6 % (11.7-14.2); RDW Standard Deviation 54.1 fL (35.1-46.3)
[2022-01-02 11:19] LABS: Albumin, Blood 3.2 g/dL (3.4-5.0); Albumin/Globulin Ratio 0.9 (0.8-1.8); Bilirubin, Total 0.2 mg/dL (0.1-1.0); Calcium, Blood 8.9 mg/dL (8.5-10.1); Creatinine, Blood 0.91 mg/dL (0.40-1.00); Globulin, Blood 3.5 g/dL (2.2-4.0); Potassium, Blood 4.3 mmol/L (3.5-5.5); Total Protein, Blood 6.7 g/dL (6.4-8.2)
== END 2022-01-02 10:25 | disposition home or self-care (01) ==
LOC: ATC 08:29
PROVIDERS: Internal Medicine Hematology & Oncology
DX: C48.2 Malignant neoplasm of peritoneum, unspecified (principal)
CPT/HCPCS: 36591; 80053; 85025; J1642

== ENCOUNTER 2022-01-16 01:27 | Day surgery (SDC) | payer OTHER ==
[2022-01-16 09:44] LABS: BASOPHILS ABSOLUTE AUTO 0.02 K/mm3 (0.00-0.23); BASOPHILS PERCENT AUTO 0 % (0-2); EOSINOPHILS ABSOLUTE AUTO 0.03 K/mm3 (0.00-0.68); EOSINOPHILS PERCENT AUTO 1 % (0-6); Hematocrit 27.8 % (33.0-51.0); Hemoglobin 8.6 g/dL (11.5-16.0); IMMATURE GRAN ABSOLUTE AUTO 0.03 K/mm3 (0.00-0.10); IMMATURE GRAN PERCENT AUTO 1 % (0-1); LYMPHOCYTES ABSOLUTE AUTO 1.69 K/mm3 (0.84-5.20); LYMPHOCYTES PERCENT AUTO 28 % (21-46); MONOCYTES ABSOLUTE AUTO 0.58 K/mm3 (0.16-1.47); MONOCYTES PERCENT AUTO 10 % (4-13); Mean Corpuscular HGB 26.7 pg (26.0-34.0); Mean Corpuscular HGB Conc 30.9 g/dL (31.5-36.5); Mean Corpuscular Volume 86 fL (80-100); Mean Platelet Volume 9.1 fL (9.1-12.4); NEUTROPHILS PERCENT AUTO 61 % (41-73); Platelet Count 287 K/mm3 (150-400); RDW Coefficient Variation 16.6 % (11.7-14.2); RDW Standard Deviation 52.5 fL (35.1-46.3); Red Blood Cell Count 3.22 M/mm3 (3.80-5.20); White Blood Cell Count 6.05 K/mm3 (4.00-11.30)
[2022-01-16 10:04] LABS: Albumin, Blood 3.2 g/dL (3.4-5.0); Bilirubin, Total 0.2 mg/dL (0.1-1.0); Bun/Creatinine Ratio 22.8 (12.0-20.0); Calcium, Blood 8.6 mg/dL (8.5-10.1); Creatinine, Blood 0.88 mg/dL (0.40-1.00); Globulin, Blood 3.2 g/dL (2.2-4.0); Potassium, Blood 4.5 mmol/L (3.5-5.5); Total Protein, Blood 6.4 g/dL (6.4-8.2)
== END 2022-01-16 09:20 | disposition home or self-care (01) ==
LOC: ATC 01:27
PROVIDERS: Internal Medicine Hematology & Oncology
DX: C48.2 Malignant neoplasm of peritoneum, unspecified (principal); C78.6 Secondary malignant neoplasm of retroperitoneum and peritoneum; I10 Essential (primary) hypertension; Z87.891 Personal history of nicotine dependence; Z88.0 Allergy status to penicillin
CPT/HCPCS: 36591; 80053; 85025; 86304; J1642

== ENCOUNTER 2022-02-13 01:17 | Day surgery (SDC) | payer OTHER ==
[2022-02-13 10:22] LABS: BASOPHILS ABSOLUTE AUTO 0.02 K/mm3 (0.00-0.23); BASOPHILS PERCENT AUTO 0 % (0-2); EOSINOPHILS ABSOLUTE AUTO 0.04 K/mm3 (0.00-0.68); EOSINOPHILS PERCENT AUTO 1 % (0-6); Hematocrit 27.2 % (33.0-51.0); Hemoglobin 8.5 g/dL (11.5-16.0); IMMATURE GRAN ABSOLUTE AUTO 0.03 K/mm3 (0.00-0.10); IMMATURE GRAN PERCENT AUTO 1 % (0-1); LYMPHOCYTES ABSOLUTE AUTO 1.84 K/mm3 (0.84-5.20); LYMPHOCYTES PERCENT AUTO 29 % (21-46); MONOCYTES ABSOLUTE AUTO 0.67 K/mm3 (0.16-1.47); MONOCYTES PERCENT AUTO 11 % (4-13); Mean Corpuscular HGB 26.1 pg (26.0-34.0); Mean Corpuscular HGB Conc 31.3 g/dL (31.5-36.5); Mean Corpuscular Volume 83 fL (80-100); Mean Platelet Volume 8.6 fL (9.1-12.4); NEUTROPHILS ABSOLUTE AUTO 3.69 K/mm3 (1.96-9.15); NEUTROPHILS PERCENT AUTO 59 % (41-73); Platelet Count 266 K/mm3 (150-400); RDW Coefficient Variation 17.1 % (11.7-14.2); RDW Standard Deviation 51.9 fL (35.1-46.3); Red Blood Cell Count 3.26 M/mm3 (3.80-5.20); White Blood Cell Count 6.29 K/mm3 (4.00-11.30)
[2022-02-13 10:42] LABS: Albumin/Globulin Ratio 0.9 (0.8-1.8); Bilirubin, Total 0.3 mg/dL (0.1-1.0); Bun/Creatinine Ratio 21.2 (12.0-20.0); Calcium, Blood 8.6 mg/dL (8.5-10.1); Creatinine, Blood 0.94 mg/dL (0.40-1.00); Globulin, Blood 3.5 g/dL (2.2-4.0); Potassium, Blood 4.1 mmol/L (3.5-5.5); Total Protein, Blood 6.5 g/dL (6.4-8.2)
== END 2022-02-13 10:12 | disposition home or self-care (01) ==
LOC: ATC 01:17
PROVIDERS: Internal Medicine Hematology & Oncology
DX: C48.2 Malignant neoplasm of peritoneum, unspecified (principal); I10 Essential (primary) hypertension; Z87.891 Personal history of nicotine dependence; Z88.0 Allergy status to penicillin
CPT/HCPCS: 36591; 80053; 85025; 86304; J1642

== ENCOUNTER 2022-02-27 00:11 | Day surgery (SDC) | payer OTHER ==
--- NOTE | 2022-02-27 12:00 | NUR ---
PT DID NOT SHOW FOR HER APPOINTMENT IN THE [facility] TODAY.
== END 2022-02-27 23:16 | disposition home or self-care (01) ==
LOC: ATC 00:11
DX: C48.2 Malignant neoplasm of peritoneum, unspecified (principal); I10 Essential (primary) hypertension; Z87.891 Personal history of nicotine dependence
CPT/HCPCS: J1642

== ENCOUNTER 2022-03-04 08:06 | Day surgery (SDC) | payer OTHER ==
--- NOTE | 2022-03-04 12:10 | NUR ---
PT ARRIVED AT 1200 STATING THAT SHE WANTED TO DO HER THURSDAY LABS TODAY AND HAVE HER MEDIPORT DEACCESSED. ORDER RECEIVED FOR STAT LABS FROM DR ALAS'S OFFICE. LABS DRAWN FROM [facility] PER HOSPITAL PROTOCOL. LINE THEN FLUSHED WITH 20ML NS AND 500 UNITS OF HEPARIN. BANDAID APPLIED. PT EDUCATED
[2022-03-04 13:27] LABS: BASOPHILS ABSOLUTE AUTO 0.01 K/mm3 (0.00-0.23); BASOPHILS PERCENT AUTO 0 % (0-2); EOSINOPHILS ABSOLUTE AUTO 0.03 K/mm3 (0.00-0.68); EOSINOPHILS PERCENT AUTO 1 % (0-6); Hemoglobin 8.6 g/dL (11.5-16.0); IMMATURE GRAN ABSOLUTE AUTO 0.02 K/mm3 (0.00-0.10); IMMATURE GRAN PERCENT AUTO 0 % (0-1); LYMPHOCYTES ABSOLUTE AUTO 1.69 K/mm3 (0.84-5.20); LYMPHOCYTES PERCENT AUTO 28 % (21-46); MONOCYTES ABSOLUTE AUTO 0.47 K/mm3 (0.16-1.47); MONOCYTES PERCENT AUTO 8 % (4-13); Mean Corpuscular HGB 25.7 pg (26.0-34.0); Mean Corpuscular HGB Conc 30.7 g/dL (31.5-36.5); Mean Corpuscular Volume 84 fL (80-100); Mean Platelet Volume 9.2 fL (9.1-12.4); NEUTROPHILS ABSOLUTE AUTO 3.81 K/mm3 (1.96-9.15); NEUTROPHILS PERCENT AUTO 63 % (41-73); Platelet Count 328 K/mm3 (150-400); RDW Coefficient Variation 17.1 % (11.7-14.2); RDW Standard Deviation 51.6 fL (35.1-46.3); Red Blood Cell Count 3.35 M/mm3 (3.80-5.20); White Blood Cell Count 6.03 K/mm3 (4.00-11.30)
[2022-03-04 13:59] LABS: Bilirubin, Total 0.2 mg/dL (0.1-1.0); Bun/Creatinine Ratio 15.3 (12.0-20.0); Calcium, Blood 8.8 mg/dL (8.5-10.1); Creatinine, Blood 1.11 mg/dL (0.40-1.00); Globulin, Blood 3.1 g/dL (2.2-4.0); Potassium, Blood 3.7 mmol/L (3.5-5.5); Total Protein, Blood 6.1 g/dL (6.4-8.2)
== END 2022-03-04 12:05 | disposition home or self-care (01) ==
LOC: ATC 08:06
PROVIDERS: Internal Medicine Hematology & Oncology
DX: C48.2 Malignant neoplasm of peritoneum, unspecified (principal); I10 Essential (primary) hypertension; Z87.891 Personal history of nicotine dependence; Z79.899 Other long term (current) drug therapy
CPT/HCPCS: 36591; 36593; 80053; 85025; 86304; J1642; J2997

== ENCOUNTER 2022-03-30 19:24 | Emergency (ER) | payer OTHER ==
[~2022-03-30] VITALS: Ht 170.2 cm; Wt 74.8 kg
[~2022-03-30 19:24] MED LIST changes: +LOPE2C PO; +ONDA4ODT MM
[2022-03-30 21:00] LABS: Influenza A, PCR NEGATIVE (NEGATIVE); Influenza B, PCR NEGATIVE (NEGATIVE); Resp Syncytial Virus, PCR NEGATIVE (NEGATIVE)
[2022-03-30 21:15] LABS: Hematocrit 27.3 % (33.0-51.0); Hemoglobin 8.5 g/dL (11.5-16.0); Mean Corpuscular HGB Conc 31.1 g/dL (31.5-36.5); Mean Corpuscular Volume 80 fL (80-100); Mean Platelet Volume 9.1 fL (9.1-12.4); Platelet Count 254 K/mm3 (150-400); RDW Coefficient Variation 16.5 % (11.7-14.2); RDW Standard Deviation 48.6 fL (35.1-46.3); White Blood Cell Count 4.04 K/mm3 (4.00-11.30)
[2022-03-30 21:33] LABS: Albumin, Blood 1.6 g/dL (3.4-5.0); Albumin/Globulin Ratio 0.4 (0.8-1.8); Bilirubin, Total 1.1 mg/dL (0.1-1.0); Bun/Creatinine Ratio 29.5 (12.0-20.0); Calcium, Blood 7.9 mg/dL (8.5-10.1); Creatinine, Blood 0.75 mg/dL (0.40-1.00); Globulin, Blood 3.9 g/dL (2.2-4.0); Potassium, Blood 3.7 mmol/L (3.5-5.5); Total Protein, Blood 5.5 g/dL (6.4-8.2)
[2022-03-30 21:51] LABS: Source, Urine Straight Cath
[2022-03-30] MEDS ORDERED: CEFD300 PO (21:54)
[2022-03-30 22:11] LABS: Appearance, Urine Hazy (Clear); Blood, Urine 1+ (Neg); Color, Urine Amber (P-Yellow); Glucose Qualitative, Urine Neg (Neg); Ketones, Urine 2+ (Neg); Leukocyte Esterase, Urine 2+ (Neg); Nitrite, Urine Neg (Neg); Protein, Urine 3+ (Neg); Specific Gravity, Urine 1.015 (1.003-1.022); Urobilinogen, Urine 3+ (Normal)
[2022-03-30 22:13] LABS: SARS-Cov-2 (COVID-19) PCR, MMC POSITIVE (NEGATIVE)
[2022-03-30 22:19] LABS: BAND PERCENT MAN 25 % (0-8); BASOPHILS PERCENT MAN 0 % (0-2); EOSINOPHILS PERCENT MAN 0 % (0-6); LYMPHOCYTES ABSOLUTE MAN 0.24 K/mm3 (0.84-5.20); LYMPHOCYTES PERCENT MAN 6 % (21-46); METAMYELOCYTE ABSOLUTE MAN 0.16 K/mm3 (0.00-0.00); METAMYELOCYTE PERCENT MAN 4 % (0-0); MONOCYTES ABSOLUTE MAN 0.08 K/mm3 (0.16-1.47); MONOCYTES PERCENT MAN 2 % (4-13); NEUTROPHILS ABSOLUTE MAN 3.55 K/mm3 (1.96-9.15); SEG NEUTROPHILS PERCENT MAN 63 % (41-73); TOTAL CELLS COUNTED 100
[2022-03-30 23:06] LABS: Bilirubin, Urine 2+ (Neg)
[2022-03-30 23:08] LABS: Red Blood Cells, Urine 0-2 /hpf (0-2)
[2022-03-30 23:09] LABS: Amorphous Light (0-Heavy); Bacteria Mod /hpf; Squamous Epithelial Cells Rare /hpf (Few)
--- NOTE | 2022-03-31 11:24 | NUR ---
Spoke with ED RN Barry Rodriguez and discussed case. Pt may benefit from goals of care discussion. Pt resting in gurney and reports significant nausea. Pt A&OX4. Engaged in therapeutic conversation regarding goals of care. Pt reports significant nausea since last chemo treatment. Continued active listening as Pt reports understaning of her cancer but would like to continue treatment. Discussed if treatment becomes bothersome then discussions with oncologist regarding options can be important. Contined active listening. Called and left message with Dr Abdalla's staff with request to speak with Dr Abdalla. Palliative Care will remain available. Plan for Pt to D/C from ED with Home Health.
== END 2022-03-31 16:10 | disposition home or self-care (01) ==
LOC: ER 19:24
PROVIDERS: Student in an Organized Health Care Education/Training Program
DX: U07.1 COVID-19 (principal); N39.0 Urinary tract infection, site not specified; E86.0 Dehydration; I10 Essential (primary) hypertension; Z87.891 Personal history of nicotine dependence; Z79.899 Other long term (current) drug therapy
CPT/HCPCS: 0241U; 71045; 80053; 81001; 82947; 83605; 84484; 85025; 87086; 93005; 93010; 96365; 96375; 96376; 99285-25; A9270; J0696; J1642; J2405; J7030; M0222; P9612

== ENCOUNTER 2022-04-03 03:54 | Inpatient (IN) | payer OTHER ==
[~2022-04-03] VITALS: Ht 157.5 cm; Wt 72.6 kg
[~2022-04-03 03:54] MED LIST changes: +CEFD300 PO
[2022-04-03 08:34] LABS: BASOPHILS ABSOLUTE AUTO 0.03 K/mm3 (0.00-0.23); BASOPHILS PERCENT AUTO 1 % (0-2); Hematocrit 25.7 % (33.0-51.0); Hemoglobin 7.8 g/dL (11.5-16.0); LYMPHOCYTES ABSOLUTE AUTO 0.29 K/mm3 (0.84-5.20); LYMPHOCYTES PERCENT AUTO 13 % (21-46); MONOCYTES ABSOLUTE AUTO 0.08 K/mm3 (0.16-1.47); MONOCYTES PERCENT AUTO 4 % (4-13); Mean Corpuscular HGB 24.4 pg (26.0-34.0); Mean Corpuscular HGB Conc 30.4 g/dL (31.5-36.5); Mean Corpuscular Volume 80 fL (80-100); Mean Platelet Volume 10.5 fL (9.1-12.4); Platelet Count 137 K/mm3 (150-400); RDW Coefficient Variation 17.1 % (11.7-14.2); RDW Standard Deviation 50.2 fL (35.1-46.3); White Blood Cell Count 2.21 K/mm3 (4.00-11.30)
[2022-04-03 08:36] LABS: EOSINOPHILS PERCENT AUTO 0 % (0-6); IMMATURE GRAN ABSOLUTE AUTO 0.01 K/mm3 (0.00-0.10); IMMATURE GRAN PERCENT AUTO 1 % (0-1); NEUTROPHILS PERCENT AUTO 81 % (41-73)
[2022-04-03 09:27] LABS: Albumin, Blood 0.7 g/dL (3.4-5.0); Albumin/Globulin Ratio 0.3 (0.8-1.8); Bilirubin, Total 1.2 mg/dL (0.1-1.0); Bun/Creatinine Ratio 32.9 (12.0-20.0); Calcium, Blood 5.1 mg/dL (8.5-10.1); Creatinine, Blood 0.46 mg/dL (0.40-1.00); Globulin, Blood 2.6 g/dL (2.2-4.0); Potassium, Blood 2.9 mmol/L (3.5-5.5); Total Protein, Blood 3.3 g/dL (6.4-8.2)
--- NOTE | 2022-04-03 18:32 | NUR ---
PT ADMITTED FROM ER, PT PLACED ON COMFORT CARE JUST PRIOR TO TRANSFER TO UNIT, PER PALLIATTIVE CARE ALL ANTIBIOTICS AND ELECTROLYTE REPLACEMENT WILL BE D/C. PT MEDCIATED FOR PAIN AND NAUSEA UPON ARRIVA. PT IS ALERT, SHE'S VERY SLEEPY, VERY SLOW TO ANSWER QUESTIONS THE ASSESSMENT IS VERY LIMITED, ADMISSION HX IS NOT COMPLETED PRIOR TO SHIFT CHANGE
--- NOTE | 2022-04-03 18:56 | NUR ---
Pt is on comfort care as of this evening. They had a long discussion with surgeon, and understand there is no further treatment for her metastatic ovarian cancer. Daughter is at bedside, and both pt and family would like to take her home tomorrow with hospice. The family asked for [facility], and [facility] stated there is an opening on thursday. Chart notes sent to [facility] and she will need a signed list of comfort meds by tomorrow morning.
--- NOTE | 2022-04-04 06:38 | NUR ---
DAUGHTER PUJA CALLED THIS AM. UPDATED ON CONDITION AND CURRENT PLAN OF CARE. PT WITH INCREASING ANXIETY AND AIR HUNGER. PRNS GIVEN AND MD NOTIFIED WITH CHANGES ON EMAR. RECCOMDENDED SHE COME IN AND BE WITH PT IF THAT WHAT HERSELF AND FAMILY DESIRED. SHE STATED SHE WOULD BE IN SHORTLY.
--- NOTE | 2022-04-04 06:40 | NUR ---
NOC SHIFT SUMMARY PT RESTLESS AND PULLING OFF GOWN AND BLANKETS. ROOM WARMED FOR COMFORT. PT VERBAL AT BEGINNING OF SHIFT AND ABLE TO STATE PAIN IN ABD AND GENERALIZED. PRNS GIVEN, REPOSITIONED. CONTINUED PAIN AND RESTLESS EVEN AFTER AVAILABLE PRNS. PT TAKES OXYCODONE AT HOME. SPOKE WITH RESIDENT ON-CALL DR. Lloyd AND ORDERS RECEIVED FOR ATIVAN AND OXYCODONE. CLARIFIED D/C OF MORPHINE. PER MD D/C MORPHINE LIQUID. CONTINUED PAIN AND RESTLESSNESS INTO THE MORNING WITH INCREASING RESPIRATIONS. ALL PRNS EXHAUSTED. DR. TENORIO NOTIFIED AND IV DILAUDID, MORPHINE NEBULIZER, AND IV ATIVAN RECIEVED. PAGED RT FOR MORPHINE NEB AND AWAITING VERIFICATION OF OTHER MEDS. FAMILY NOTIFIED OF CHANGE IN RESPIRATIONS AND WILL BE COMING IN SHORTLY. WILL PASS ON TO DAY RN
--- NOTE | 2022-04-04 07:48 | NUR ---
CARE NOTE FAMILY AT BEDSIDE, PT APPEARS TO BE SLEEPING COMFORTABLY. FAMILY STATED SHE WAS RECENTLY REPOSITIONED AND THEY BELIEVE SHE IS COMFORTABLE. WILL CONTINUE TO MONITOR.
--- NOTE | 2022-04-04 09:26 | NUR ---
Upom receiving a call for unload associate Gabe, I visit family. Family are grieving appropriately. Son, Lewis, is very emotional and shaking, dtr, September, is more stable and vows to watch over Lewis and stay with him until she feels he is more peaceful. I conduct a life review, explore spiritual beliefs and provide therapeutic listening, grief support and prayer. Follow-up bereavement support materials are given. They select [facility] in [place]. Family respond well and show signs of being comforted.
--- NOTE | 2022-04-04 10:40 | NUR ---
CARE NOTE FAMILY WAS AT BEDSIDE AT TIME OF , THIS NURSE AND BENSON HOWE RN VERIFIED PT HAD DECEACED. PASTOR BARCLAY WAS AT BEDSIDE FOR FAMILY SUPPORT PER FAMILY REQUEST.
== END 2022-04-04 10:35 | DRG 871 ==
LOC: ER 03:54 → ICUW 13:42 → PCU 17:31
PROVIDERS: Student in an Organized Health Care Education/Training Program; ADMIT Internal Medicine
PROC: 3E03329 Introduction of Other Anti-infective into Peripheral Vein, Percutaneous Approach (ICD-10-PCS; principal; 2022-04-03)
PROC: 8E0ZXY6 Isolation (ICD-10-PCS; 2022-04-03)
PROC: 3E0333Z Introduction of Anti-inflammatory into Peripheral Vein, Percutaneous Approach (ICD-10-PCS; 2022-04-03)
DX: A41.9 Sepsis, unspecified organism (principal); J96.01 Acute respiratory failure with hypoxia; K63.1 Perforation of intestine (nontraumatic); U07.1 COVID-19; D61.818 Other pancytopenia; C78.6 Secondary malignant neoplasm of retroperitoneum and peritoneum; C56.9 Malignant neoplasm of unspecified ovary; R18.0 Malignant ascites; E87.6 Hypokalemia; E83.42 Hypomagnesemia; Z98.51 Tubal ligation status; Z51.5 Encounter for palliative care; R63.0 Anorexia; E88.09 Other disorders of plasma-protein metabolism, not elsewhere classified; Z98.890 Other specified postprocedural states; Z79.899 Other long term (current) drug therapy; Z87.891 Personal history of nicotine dependence; Z88.0 Allergy status to penicillin; Z20.822 Contact with and (suspected) exposure to COVID-19; E83.51 Hypocalcemia; Z66 Do not resuscitate; Z92.21 Personal history of antineoplastic chemotherapy; I10 Essential (primary) hypertension; K66.8 Other specified disorders of peritoneum; Z68.29 Body mass index [BMI] 29.0-29.9, adult
CPT/HCPCS: 36415; 51702; 51798; 71045; 74177; 80053; 83605; 83690; 83735; 85025; 86304; 87040; 94640; 94664; 96365-59; 96366-59; 96368; 96375-59; 96376-59; 99285-25; A9270; J0610; J0692; J1100; J1170; J2060; J2270; J2405; J3010; J3370; J3480; J7030; J7050; J7120; P9047; Q9967